=== PATIENT | male | born 1945 | race Caucasian/White ===

== ENCOUNTER → 2020-04-26 00:52 | Outpatient (CLI) | payer MEDICARE, SELFPAY ==
[2020-04-26 18:32] LABS: SARS-CoV-2 RNA PCR Negative
== END ==
PROVIDERS: PCP Family Medicine; Visit Provider Internal Medicine Gastroenterology
DX: Z01.812 Encounter for preprocedural laboratory examination (principal); Z20.822 Contact with and (suspected) exposure to COVID-19
CPT/HCPCS: C9803; U0003; U0005

== ENCOUNTER 2020-04-29 00:58 | Day surgery (SDC) | payer MEDICARE, SELFPAY ==
[2020-04-18 15:05] VITALS: BMI 25.2
[2020-04-29 07:09] VITALS: BP 145/65; PULSE 77; RESP 20; TEMP 36.8; O2SAT 97; BMI 24.2
--- NOTE | 2020-04-29 07:17 | PM.HPGS ---
History of Present Illness History of Present Illness Consent: Risks, benefits, and alternatives have been discussed and questions answered. Patient agrees to proceed with procedure. Chief complaint: neoplasm screening Narrative: Justin Schmid is a 74 year old male referred for colon cancer screening Review of Systems Review of Systems: All systems reviewed & are unremarkable except as noted in HPI and below PMFSH Past Medical History Medical History BMI 26.0-26.9,adult Chronic left hip pain Family History Family History Mother Hypertension Family history of elevated blood lipids Family history of coronary artery disease Patient's mother is , Onset Age: 95 Sibling Carcinoma of colon Family history of coronary artery disease Other Family history of malignant neoplasm of male breast Social History Social History Smoking status: Never smoker Alcohol intake: never Substance use: never Substance use type: does not use Living arrangements: with family Spiritual care concerns: No Meds Home Medications and Allergies Home Medications Medication Instructions Recorded Confirmed Type aspirin 81 mg tablet,delayed 81 mg PO DAILY 12/30/18 04/18/20 History release omega-3 fatty acids 1,000 mg 1,000 mg PO DAILY 12/30/18 04/18/20 History capsule levothyroxine 125 mcg tablet 125 mcg PO DAILY #90 tablet 12/03/19 04/18/20 Rx duloxetine 30 mg capsule,delayed 30 mg PO DAILY #90 cap 04/08/20 04/18/20 Rx release cholecalciferol (vitamin D3) 50 mcg PO DAILY 04/18/20 04/18/20 History [Vitamin D3] cyanocobalamin (vitamin B-12) 1,000 mcg PO DAILY 04/18/20 04/18/20 History [Vitamin B-12] finasteride 5 mg PO HS 04/18/20 04/18/20 History lysine [L-Lysine] 1,000 mg PO DAILY 04/18/20 04/18/20 History Allergies Allergy/AdvReac Type Severity Reaction Status Date / Time No Known Allergies Allergy Unknown Unverified 04/18/20 15:06 Vital Signs Vital Signs - 24 hr 04/29/20 07:09 Temperature 36.8 C Pulse Rate 77 Respiratory Rate 20 Blood Pressure 145/65 H Pulse Oximetry 97 Exam Resp: Auscultation: clear to auscultation bilaterally Cardio: Rate: regular rate Rhythm: regular rhythm GI: GI Palp: Yes Soft to palpation and No Tenderness to palpation present (GI) Assessment and Plan Assessment and plan (1) Colon cancer screening: Code(s): Z12.11 - Encounter for screening for malignant neoplasm of colon Status: Acute Assessment and Plan: Colonoscopy with possible biopsy or polypectomy or cautery or injection of substances.
[2020-04-29] MEDS: LACTATED RINGERS 1,000 ML 150 ML IV CONT (07:20)
--- NOTE | 2020-04-29 07:20 | WPDANESEPPF ---
Anes - Initial Pre Proc Eval Procedure: Operation Date: 04/29/20 08:30 Proposed Procedures p Screening Colonoscopy - Kyle Elias MD Date/Time: 04/29/20 07:20 Surgeon: Kyle Elias MD Pre Op Diagnosis: neoplasm screening Patient Data Age: 74 Gender: M Height: 5 ft 7 in Weight: 70.1 kg Last Vital Signs Temp 36.8 C 04/29/20 07:09 Pulse 77 04/29/20 07:09 Resp 20 04/29/20 07:09 BP 145/65 H 04/29/20 07:09 Pulse Ox 97 04/29/20 07:09 Allergies Allergy/AdvReac Type Severity Reaction Status Date / Time No Known Allergies Allergy Unknown Unverified 04/18/20 15:06 Home Medications Medication Instructions Recorded Confirmed Type aspirin 81 mg tablet,delayed 81 mg PO DAILY 12/30/18 04/18/20 History release omega-3 fatty acids 1,000 mg 1,000 mg PO DAILY 12/30/18 04/18/20 History capsule levothyroxine 125 mcg tablet 125 mcg PO DAILY #90 tablet 12/03/19 04/18/20 Rx duloxetine 30 mg capsule,delayed 30 mg PO DAILY #90 cap 04/08/20 04/18/20 Rx release cholecalciferol (vitamin D3) 50 mcg PO DAILY 04/18/20 04/18/20 History [Vitamin D3] cyanocobalamin (vitamin B-12) 1,000 mcg PO DAILY 04/18/20 04/18/20 History [Vitamin B-12] finasteride 5 mg PO HS 04/18/20 04/18/20 History lysine [L-Lysine] 1,000 mg PO DAILY 04/18/20 04/18/20 History Patient hx anesthesia problems: none Family hx anesthesia problems: none PMFSH Past Medical History Medical History (Updated 04/29/20 @ 07:47 by De Flores MD) BMI 26.0-26.9,adult Chronic depression Chronic left hip pain Generalized anxiety disorder Hypothyroid Lymphoma Mixed hyperlipidemia Family History Family History Mother Hypertension Family history of elevated blood lipids Family history of coronary artery disease Patient's mother is , Onset Age: 95 Sibling Carcinoma of colon Family history of coronary artery disease Other Family history of malignant neoplasm of male breast Social History Social History Smoking status: Never smoker Alcohol intake: never Substance use: never Substance use type: does not use Living arrangements: with family Spiritual care concerns: No Anes - Eval Final PreProcedure Day of Procedure 04/29/20 07:20 Patient weight: normal Heart: regular rate and rhythm Lungs: clear to auscultation Airway: Mallampati scale class II Neurological: alert and oriented Last oral intake: >/= 8 hours ASA classification: III Emergent: no Anesthetic plan: proceed Anesthesia type and monitoring: general GIVS and standard monitoring Informed Consent: The patient's anesthetic plan and its attendant risks and benefits were discussed with the patient/family/POA. Questions were solicited and answers provided to the satisfaction of the patient/family/POA.
[2020-04-29 08:44] VITALS: BP 109/67; PULSE 61; RESP 15; O2SAT 97
[2020-04-29 08:58] VITALS: BP 114/67; PULSE 52; RESP 16; O2SAT 96
[2020-04-29 09:04] VITALS: BP 138/71; PULSE 51; RESP 22; O2SAT 95
== END 2020-04-29 09:10 | disposition home or self-care (01) ==
PROVIDERS: PCP Family Medicine; Visit Provider Internal Medicine Gastroenterology
PROC: 0DJD8ZZ Inspection of Lower Intestinal Tract, Via Natural or Artificial Opening Endoscopic (ICD-10-PCS; CPT 45378; principal; 2020-04-29 08:30)
DX: Z12.11 Encounter for screening for malignant neoplasm of colon (principal); Z80.0 Family history of malignant neoplasm of digestive organs; E78.5 Hyperlipidemia, unspecified; E03.9 Hypothyroidism, unspecified; F41.1 Generalized anxiety disorder; F32.9 Major depressive disorder, single episode, unspecified; Z85.72 Personal history of non-Hodgkin lymphomas
CPT/HCPCS: G0105; J2704; J7120

== ENCOUNTER 2021-11-15 15:37 | Emergency (ER) | payer MEDICARE, SELFPAY ==
--- NOTE | ~2021-11-15 | XR_ITS ---
XR ankle LT min 3V 11/15/2021 16:23 Indication: Left ankle pain Procedure: 4 views left ankle Comparison: No prior studies for comparison. Findings: There is a displaced oblique medial malleolar fracture. There is soft tissue swelling. Danica r dome is normal. Talar dome is normal. Small degenerative calcaneal enthesophyte. 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 Impression: 1: Displaced oblique medial malleolar fracture. Reviewed, dictated and finalized at location B. Impression: 1: Displaced oblique medial malleolar fracture.
--- NOTE | ~2021-11-15 | CT_ITS ---
EXAMINATION: CT lumbar spine wo con DATE: 11/15/2021 16:13 INDICATION: Low back pain. Fall. TECHNIQUE: Computed tomography (CT) of the lumbar spine was performed without intravenous contrast. A utomated exposure control and iterative reconstruction technique were employed. The dose-length produ ct was 447.77 mGy-cm. COMPARISON: None FINDINGS: There is 6 degrees levocurvature of lumbar spine. There is 4 mm anterolisthesis of L4 on L5 . There are Schmorl's nodes at multiple levels. There is mild chronic anterior wedging of T12 vertebr al body. There is mildly decreased disc height from L1-L2 through L4-L5. The following disc levels ar e specifically discussed: L1-L2: The disc is bulging. There is moderate bilateral facet joint osteoarthritis. There is mild shonda ateral neural foraminal stenosis. There is mild central canal stenosis. L2-L3: The disc is bulging. There is moderate bilateral facet joint osteoarthritis. There is mild shonda ateral neural foraminal stenosis. There is mild central canal stenosis. L3-L4: The disc is bulging. There is moderate bilateral facet joint osteoarthritis. There is mild shonda ateral neural foraminal stenosis. There is mild central canal stenosis. L4-L5: The disc is bulging. There is severe bilateral facet joint osteoarthritis. There is moderate b ilateral neural foraminal stenosis. There is moderate central canal stenosis. L5-S1: The disc is bulging. There is severe bilateral facet joint osteoarthritis. There is no neural foraminal stenosis. There is mild central canal stenosis. IMPRESSION: 1. No fracture. 2. Moderate lumbar spondylosis. Reviewed, dictated and finalized at location A.
--- NOTE | ~2021-11-15 | CT_ITS ---
EXAMINATION: CT brain wo con DATE: 11/15/2021 16:07 INDICATION: fall . TECHNIQUE: Computed tomography (CT) of the head was performed without intravenous contrast. The mA wa s adjusted according to patient size. Iterative reconstruction technique was employed. The dose-lengt h product was 605.33 mGy-cm. COMPARISON: None FINDINGS: No acute intracranial hemorrhage or extra-axial fluid collection. No hydrocephalus, mass, or herniation. No acute ischemic infarct. Unremarkable dural venous sinus attenuation. No acute osseous abnormality. Trace left mastoid fluid, partial left mastoidectomy versus poor pneumatization, retention cysts or p olyps in the bilateral maxillary and sphenoid sinuses, the remaining aerated spaces are clear. Atherosclerotic intracranial calcification. Bilateral lens replacements. IMPRESSION: No acute intracranial process. Reviewed, dictated and finalized at location K.
--- NOTE | ~2021-11-15 | CT_ITS ---
EXAMINATION: CT cervical spine wo con DATE: 11/15/2021 16:12 INDICATION: trauma TECHNIQUE: Computed tomography (CT) of the cervical spine was performed without intravenous contrast. Automated exposure control and iterative reconstruction technique were employed. The dose-length pro duct was 339.86 mGy-cm. COMPARISON: None FINDINGS: Vertebral Body Alignment: Intact. Craniocervical and atlantoaxial alignment: Moderate degenerative change. Alignment intact. Osseous structures/fracture: No evidence of a lytic or blastic process in the visualized spine. No e vidence of acute fracture. Cervical soft tissues: The paraspinal soft tissues planes are maintained. Small bilateral mastoid eff usions. Biapical pleural scarring. Degenerative changes: Degenerative changes, without severe neural foraminal or central canal narrowin g. IMPRESSION: No acute fracture or traumatic malalignment in the cervical spine. Reviewed, dictated and finalized at location K.
--- NOTE | ~2021-11-15 | XR_ITS ---
EXAMINATION: XR foot LT min 3V DATE: 11/15/2021 17:13 INDICATION: Left foot injury and pain. TECHNIQUE: 4 views of left foot were obtained. COMPARISON: None. FINDINGS: Bone alignment is normal. There is an oblique fracture of medial malleolus. There is modera te osteoarthritis of first tarsometatarsal joint and mild osteoarthritis of many of the midfoot joint s and interphalangeal joints. There is chronic flattening of head of second metatarsal, consistent wi th osteonecrosis (Freiberg infraction). There is an enthesophyte at posterior aspect of calcaneal tub erosity. IMPRESSION: 1. Oblique fracture of medial malleolus. Reviewed, dictated and finalized at location A.
--- NOTE | ~2021-11-15 | XR_ITS ---
EXAMINATION: XR chest 1V 11/15/2021 16:23 INDICATION: Status post fall. PROCEDURE: AP chest COMPARISON: No prior studies for comparison. FINDINGS: The lungs are clear. The cardiomediastinal silhouette is within normal limits. There are no pleural effusions. There is no pneumothorax suspected. IMPRESSION: 1: NO ACUTE CARDIOPULMONARY DISEASE. Reviewed, dictated and finalized at location B.
--- NOTE | ~2021-11-15 | XR_ITS ---
EXAMINATION: XR tibia fibula LT 2V DATE: 11/15/2021 17:13 INDICATION: Left lower leg injury and pain. TECHNIQUE: 2 views of left tibia and fibula on 4 radiographs were obtained. COMPARISON: None. FINDINGS: There is an oblique fracture of medial malleolus in near-anatomic alignment. There is an ob lique fracture of proximal fibular diaphysis. The distal fracture fragment demonstrates one cortical width anterior displacement. There is mild tricompartmental osteoarthritis at the knee. IMPRESSION: 1. Oblique fracture of medial malleolus. 2. Oblique fracture of proximal fibular diaphysis. Reviewed, dictated and finalized at location A.
[2021-11-15 15:41] VITALS: BP 138/65; PULSE 83; RESP 14; TEMP 36.7; O2SAT 96
--- NOTE | 2021-11-15 16:05 | ED.FALL ---
HPI - Fall General Chief Complaint: Fall Stated Complaint: fell 10-15 feet off roof Time Seen by Provider: 11/15/21 15:48 History of Present Illness HPI Narrative: Pt fell off a roof about 15 ft and landed on feet and flexed forward. Pt complains only of low back and left ankle pain. Pt denies CP, SOB, or abdominal pain.. Pt denies neck pain or LOC. Pt denies weakness or numbness Related Data Home Medications Medication Instructions Recorded Confirmed omega-3 fatty acids 1,000 mg 1,000 mg PO DAILY 12/30/18 08/09/21 capsule (Fish Oil Concentrate) lysine 1,000 mg tablet 1,000 mg PO DAILY 04/18/20 08/09/21 cholecalciferol (vitamin D3) 50 2,000 unit PO DAILY 08/24/20 08/09/21 mcg (2,000 unit) capsule (Vitamin D3) cyanocobalamin (vitamin B-12) 1,000 mcg PO DAILY 08/24/20 08/09/21 1,000 mcg tablet (Vitamin B-12) tadalafil 5 mg tablet (Cialis) 5 mg PO DAILY 02/08/21 08/09/21 finasteride 5 mg tablet 5 mg PO DAILY 08/09/21 08/09/21 Allergies Allergy/AdvReac Type Severity Reaction Status Date / Time No Known Allergies Allergy Unknown Verified 11/15/21 15:54 Review of Systems Review of Systems: All systems reviewed & are unremarkable except as noted in HPI and below PMFSH Past Medical History Medical History (Updated 11/15/21 @ 18:44 by Gamal Decker III, ) BMI 24.0-24.9, adult BMI 26.0-26.9,adult Chronic depression Chronic left hip pain Generalized anxiety disorder Hypothyroid Lymphoma Mixed hyperlipidemia Total cholesterol 245, HDL 41, triglycerides 204 and LDL 168 on 02/06/2021 Neoplasm of skin of axilla (08/24/20) 0.4 cm left axilla Family History Family History Mother Hypertension Family history of elevated blood lipids Family history of coronary artery disease Patient's mother is , Onset Age: 95 Sibling Carcinoma of colon Family history of coronary artery disease Other Family history of malignant neoplasm of male breast Social History Social History Smoking status: Never smoker Alcohol intake: never Substance use: never Substance use type: does not use Spiritual care concerns: No Exam Const: General: healthy appearing Nutritional Appearance: well nourished Orientation/consciousness: patient oriented x3 Limitations: no limitations HENMT: Head: normal to inspection Neck: Neck: normal visual inspection Other: no midline tenderness Chest: Chest palpation & inspection: normal inspection of the chest Resp: Effort & Inspection: normal respiratory effort Auscultation: clear to auscultation bilaterally Cardio: Rate: regular rate Rhythm: regular rhythm GI: Auscultation: normal bowel sounds Other: soft Back/Spine/Pelvis: Other: tender midline low back Skin: General skin exam: normal color Rashes: no rashes Wounds: no wounds Neuro: General: patient oriented x3, moves all extremities, no meningeal signs, no focal motor deficits and CN's II-XI intact bilaterally Cranial nerves: Yes Nystagmus not present Extrem: Other: deformed swollen left ankle but not grossly displaced Psych: Mental Status: mental status grossly normal Affect: normal affect Attitude: cooperative Course Vital Signs Vital signs: Vital Signs Temperature 98.1 F 11/15/21 15:41 Pulse Rate 83 11/15/21 15:41 Respiratory Rate 14 11/15/21 15:41 Blood Pressure 138/65 11/15/21 15:41 Pulse Oximetry 96 11/15/21 15:41 Oxygen Delivery Room Air 11/15/21 15:41 Temperature 98.1 F 11/15/21 15:41 Pulse Rate 71 11/15/21 18:58 Respiratory Rate 18 11/15/21 18:58 Blood Pressure 158/65 H 11/15/21 18:58 Pulse Oximetry 100 11/15/21 18:58 Oxygen Delivery Room Air 11/15/21 15:41 MDM - Fall Lab Data Result diagrams: 11/15/21 16:52 11/15/21 16:52 Labs: Lab Results 11/15/21
[2021-11-15 17:00] LABS: Basophils Percent Auto 0.2 % (0.2-1.2); Eosinophils Percent Auto 0.3 % (0-4.4); Hematocrit 43.3 % (42.0-52.0); Hemoglobin 15.1 g/dL (14.0-18.0); Immature Platelet Fraction Pct 3.4 % (0.9-11.2); Lymphocytes Absolute Auto 1.27 K/mm3 (0.9-3.2); Lymphocytes Percent Auto 12.2 % (18.3-44.2); Mean Corpuscular HGB Conc 34.9 g/dl (32-36); Mean Corpuscular Hemoglobin 30.8 pg (26-34); Mean Corpuscular Volume 88.2 fl (80-100); Mean Platelet Volume 9.5 fl (7.4-10.4); Monocytes Absolute Auto 0.6 K/mm3 (0.1-0.6); Monocytes Percent Auto 5.6 % (2.6-8.5); Neutrophils Absolute Auto 8.4 K/mm3 (1.3-6.7); Neutrophils Percent Auto 80.7 % (45.5-73.1); Platelet Count Result 157 k/mm3 (150-375); Red Blood Count 4.91 M/mm3 (4.6-6.20); Red Cell Distribution Width 13.2 % (11.5-14.5); White Blood Count 10.4 K/mm3 (4.5-10.0)
[2021-11-15 17:09] LABS: Alanine Aminotransferase 27 U/L (6-50); Albumin Level 4.3 g/dL (3.5-5.1); Alkaline Phosphatase 80 U/L (38-126); Anion Gap 11 mmol/L (8-16); Aspartate Amino Transferase 31 U/L (17-59); Bilirubin,Total 0.7 mg/dL (0.2-1.3); Blood Urea Nitrogen 20 mg/dL (9-20); Calcium 9.3 mg/dL (8.4-10.2); Carbon Dioxide 28 mmol/L (22-30); Chloride 104 mmol/L (98-107); Estimated Glomerular Filt Rate > 60; Glucose 107 mg/dL (65-110); Potassium 3.9 mmol/L (3.4-5.0); Sodium 143 mmol/L (137-145)
[2021-11-15 17:20] LABS: INR 1.1; Prothrombin Time 13.7 Seconds (11.1-14.7)
[2021-11-15 18:58] VITALS: BP 158/65; PULSE 71; RESP 18; O2SAT 100
--- NOTE | 2021-12-06 08:53 | PC.NURSE ---
LATE ENTRY This note is being entered to document information to the patient's record. The following information was omitted on [11/15/2021], by [Yumi Patel]. Left leg, short ocl splint applied.
--- NOTE | 2021-12-07 11:27 | PC.NURSE ---
LATE ENTRY This note is being entered to document information to the patient's record. The following information was omitted on [], by [].
== END 2021-11-15 19:05 | disposition home or self-care (01) ==
PROVIDERS: Emergency Provider Emergency Medicine; PCP Family Medicine
DX: S82.52XA Displaced fracture of medial malleolus of left tibia, initial encounter for closed fracture (principal); S89.292A Other physeal fracture of upper end of left fibula, initial encounter for closed fracture; E78.2 Mixed hyperlipidemia; E03.9 Hypothyroidism, unspecified; F41.1 Generalized anxiety disorder; F32.A Depression, unspecified; Z85.828 Personal history of other malignant neoplasm of skin; Z85.72 Personal history of non-Hodgkin lymphomas; M47.816 Spondylosis without myelopathy or radiculopathy, lumbar region; W13.2XXA Fall from, out of or through roof, initial encounter
CPT/HCPCS: 29515; 36415; 70450; 71045; 72125; 72131; 73590; 73610; 73630; 80053; 85025; 85055; 85610; 85730; 86850; 86900; 86901; 99284

== ENCOUNTER 2023-11-15 07:53 | Outpatient (CLI) | payer MEDICARE, SELFPAY | END 2023-11-15 07:54 | disposition home or self-care (01) | LOC: ANHAUDIO 07:55 | PROVIDERS: PCP Family Medicine; Visit Provider Otolaryngology | DX: H90.6 Mixed conductive and sensorineural hearing loss, bilateral (principal); Z90.89 Acquired absence of other organs | CPT/HCPCS: 92557; 92567 ==

== ENCOUNTER 2025-01-13 10:59 | Outpatient (CLI) | payer MEDICARE, SELFPAY ==
--- NOTE | ~2025-01-13 | CT_ITS ---
EXAMINATION: CT chest abdomen pelvis w con DATE: 01/13/2025 11:51 INDICATION: Abnormal weight loss. TECHNIQUE: Computed tomography (CT) of the chest, abdomen, and pelvis was performed with 100 mL Omnipaque 350 intravenous contrast. Automated exposure control and iterative reconstruction technique were employed. The dose-length product was 471.55 mGy-cm. COMPARISON: CT abdomen and pelvis 10/23/2012 FINDINGS: CHEST CT: There is mild scarring at the lung apices. There is mild atelectasis bilaterally. No pleural effusion. The heart size is normal. There are coronary artery calcifications. No pericardial effusion. There is mild bilateral gynecomastia. There are bridging endplate osteophytes at multiple levels in the spine, consistent with diffuse idiopathic skeletal hyperostosis (DISH). ABDOMEN/PELVIS CT: The liver, gallbladder, spleen, pancreas, adrenal glands, and kidneys are normal. There is an umbilical hernia containing fat. There is diverticulosis of the colon without evidence of diverticulitis. The appendix is normal. There are no dilated loops of bowel. There are no pathologically enlarged lymph nodes. There is no free intraperitoneal fluid. There are bilateral total hip arthroplasties. There is moderate lumbar spondylosis. IMPRESSION: 1. Umbilical hernia containing fat. Reviewed, dictated and finalized at location E. TAL PRODUCTION MANAGER
[2025-01-13 11:49] LABS: Estimated Glomerular Filt Rate > 60
--- OUTSIDE RECORDS SUMMARY | 2025-01-13 12:38 | XMS_ITS | Clinical Summary ---
Author Organization [facility] Address [address] [place] [id number] Care Team Providers Care Agriculture Professor Name Role Phone Tello Ramirez MD Primary Care Provider [phone] Duong Hanna MD Unavailable Isma Elias MD Unavailable [phone] Paul Herrera MD Unavailable [phone] Allergies No known active allergies Medications aspirin 81 mg tablet Take 81 mg by mouth daily Active cyanocobalamin, vitamin B-12, 1,000 mcg tablet extended release daily. 7 Active cholecalciferol (VITAMIN D-3) 1,000 unit TAKE DIRECTED. 7 Active omega 9-jue-fnt-fish oil 300-1,000 mg capsule daily 7 Active ketorolac (ACULAR) 0.5 % ophthalmic solution 8 Active levothyroxine (SYNTHROID) 125 mcg tablet 1 tablet (125 mcg total) 8 Active lysine 1,000 mg tablet daily Active simvastatin (ZOCOR) 20 mg tablet 8 Active tamsulosin (FLOMAX) 0.4 mg extended release capsule 8 Active finasteride (PROSCAR) 5 mg tablet 1 Active tadalafiL (CIALIS) 5 mg tablet Take 5 mg by mouth daily [address] (CYMBALTA) 60 mg capsule Take 60 mg by mouth daily 1 Active Eliquis 2.5 mg tabletIndicatio ns:History of hip surgery TAKE 1 TABLET BY MOUTH EVERY 12 HOURS (ADMINISTER FIRST POST-OP DOSE 23 HOURS AFTER PROCEDURE END TIME) 3 Active Pain Reliever, acetaminophen, 500 mg tabletIndicatio ns:History of hip surgery Take 1,000 mg by mouth every 6 (six) hours 3 Active meloxicam (MOBIC) 15 mg tablet TAKE 1 TABLET BY MOUTH ONCE DAILY NEEDED FOR PAIN 5 Active Active Problems Problem Noted Date Diagnosed Date Screening PSA (prostate specific antigen) 2017 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 Cancer Staging:Clinical stage from 11/18/2012:Stage III(A - Asymptomatic) - Signed by Rick Graham MD on 05/08/2018 Neoplasm of connective and soft tissue 6 Lung nodule Immunizations Immunization Administration Dates Next Due Influenza, Quadrivalent, Leni l Culture-based MDCK, Preservative Free, Antibiotic Free, Intramuscular 11/11/2017 Influenza, Quadrivalent, Spl it, Preservative Free, Intramuscular 12/11/2019,11/02/2014 Influenza, Trivalent, High D ose, Split, Preservative Free, Intramuscular 02/23/2019,01/12/2016 Moderna SARS-CoV-2 Monovalent Vaccination (12+ Y RS) 03/23/2020 Pneumococcal Conjugate PCV 13 11/02/2014 Pneumococcal Polysaccharide PPV23 02/11/2020 Surgical History Surgery Date Site/Laterality Comments PORT PLACEMENT CHEST >5 YEARS 11/20/2012 N/A ANKLE FRACTURE SURGERY 11/23/2021 Left REVISION TOTAL HIP ARTHROPLASTY 03/20/2022 Left TOTAL HIP ARTHROPLASTY 02/11/2023 - 02/11/2024 Right Medical History Medical History Date Comments 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, unspecified site - (Added by TW Conv) Family History Medical History Relation Name Comments Cancer Brother Relation Name Status Comments Brother Social History Tobacco Use Types Packs/Day Years Used Date Smoking Tobacco: Never Smokeless Tobacco: Never Alcohol Use Standard Drinks/Week Comments No 0 (1 standard drink = 0.6 oz pur e alcohol) Sex and Gender Information Value Date Recorded Sex Assigned at Not on file Legal Sex 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 Gender Identity Not on file Sexual Orientation Not on file Last Filed Vital Signs Vital Sign Reading Time Taken Comments Blood Pressure 164/75 04/13/2024 8:25 AM BEHAVIORAL HEALTH TECHNICIAN Pulse 66 04/13/2024 8:25 AM BEHAVIORAL HEALTH TECHNICIAN Temperature 36.6 C (97.8 F) 04/13/2024 8:25 AM BEHAVIORAL HEALTH TECHNICIAN Respiratory Rate 18 04/13/2024 8:25 AM BEHAVIORAL HEALTH TECHNICIAN Oxygen Saturation 97% 04/13/2024 8:25 AM BEHAVIORAL HEALTH TECHNICIAN Inhaled Oxygen Concentration - - Weight 69.9 kg (154 lb) 04/13/2024 8:22 AM BEHAVIORAL HEALTH TECHNICIAN Height 167.6 cm (5' 6) 04/13/2024 8:22 AM BEHAVIORAL HEALTH TECHNICIAN Body Mass Index 24.86 04/13/2024 8:22 AM BEHAVIORAL HEALTH TECHNICIAN Plan of Treatment Health Maintenance Due Date Last Done Comments Depression Screening 1945 Fall Risk Assessment 1945 Hepatitis C Screening 1945 DTaP/Tdap/Td Vaccine (1 - Tdap) 1957 Zoster Vaccine (1 of 2) 1965 Well Visit 65+ 11/26/2011 Covid-19 Vaccine (2 - 2024-2 6 season) 2024 03/23/2020 Influenza Vaccine (#1) 2024 , 02/23/2019, 11/11/2017, Additional history exists Hepatitis B Screening Completed 11/14/2012 Pneumococcal vaccine 65+ Completed 02/11/2020, 10/13 Insurance MEDICARE [facility] MEDICARE SUPPLEMENT INSURANCE [place] [id number] MEDICARE [facility] MEDICARE SUPPLEMENT INSURANCE [place] [id number] MEDICARE CIG MEDICARE SUPPLEMENT INSURANCE Care Teams Agriculture Professor Relationship Specialty Start Date End Date Tello Ramirez MD [address] [address] PCP - General 04/09/16 Duong Hanna MD [address] [address] Consulting Physician Urology 05/12/18 Isma Elias MD [address] [address] Consulting Physician Pulmonary Disease 05/12/18 Paul Herrera MD [facility] [address] [place] [address] Medical Oncologist Medical Oncology 04/15/23
== END 2025-01-13 11:00 | disposition home or self-care (01) ==
PROVIDERS: PCP Family Medicine; Visit Provider Family Medicine
DX: R63.4 Abnormal weight loss (principal); C82.85 Other types of follicular lymphoma, lymph nodes of inguinal region and lower limb; K42.9 Umbilical hernia without obstruction or gangrene
CPT/HCPCS: 71260; 74177; Q9967